=== PATIENT | male | born 1950 | race Caucasian/White ===

== ENCOUNTER → 2016-12-05 | Outpatient (CLI) | payer BC ==
[~2016-12-05] MED LIST: ADVAIR 2501 DISK W/1 INH; AMLODIPINE BESYL5 MG PO; ASPIRIN81 MG PO; FAMOTIDINE20 MG PO; LASIX20 MG PO; LOPID600 MG PO; LOSARTAN POTAS100 MG PO; METOPROLOL TAR25 MG PO; OXYCONTIN30 MG PO; PERCOCET 10/3251 TAB PO; PREDNISONE10 MG/DOSE PO; VENTOLIN5 MG/ML INH
--- NOTE | ~2016-12-05 | CR71 ---
[facility] A Service of [facility] & [facility] [place] RADIOLOGY TEXT RESULTS PATIENT: AARTI PINA LOCATION: [facility] : 48 UNIT #: [id number] AGE: [address]: Alyce Russell MD SEX: M ORDER DR: [id number] [facility] [address] [place], [place] [address] [id number] MR#: [id number] Acc #: [id number] NAME: AARTI PINA : 1950 SEX: M STUDY DATE/TIME: 12/05/2016 13:58 UNIT: [facility] ROOM: STUDY DESCRIPTION: CR Chest Single View Attending Physician: Alyce Russell M.D. Referring Physician: Alyce Russell M.D. Ordering Physician: Alyce Russell M.D. Primary Care Physician: Steve Marte M.D. MEDICAL IMAGING REPORT This report is preliminary unless electronic signature is present EXAM AP radiograph chest, 12/05/2016 HISTORY Short of air with COPD, 2 months duration. FINDINGS AP radiograph of the chest presented. Comparison 07/05/2016. The lungs are hyperinflated as on prior examination consistent with the given diagnosis of COPD. There is no indication of acute infectious or inflammatory disease, pleural effusion or pneumothorax. There is no suspicious nodule. Densely calcified aortopulmonary window lymph node as on prior study. Heart is normal in size. Mediastinal contour is normal. No acute bony abnormality. Mild thoracolumbar scoliosis unchanged. Dictated by... Chivo Roque M.D. THIS IS AN ELECTRONICALLY VERIFIED REPORT Chivo Roque M.D. at 12/06/2016 5:13 PM ÁNGELA/lupe TD: 12/05/2016 22:00 JOB #: [id number] MEDICAL IMAGING REPORT Page 1 of 1 COPY
== END | disposition home or self-care (01) ==
LOC: CRAD 13:43
DX: R06.02 Shortness of breath (principal)
CPT/HCPCS: 71010